=== PATIENT | male | born 1965 | race Caucasian/White ===

== ENCOUNTER 2020-04-20 22:47 | Emergency (ER) | payer BC ==
[2020-04-21] MEDS ORDERED: LORazepam 0.5 MG Tab PO ONE (00:21)
--- NOTE | 2020-04-21 00:26 | EDM.PDOC ---
ED HPI GENERAL MEDICAL PROBLEM - General Chief Complaint: Cardiovascular Problem Stated Complaint: HIGH BLOOD PRESSURE Time Seen by Provider: 04/20/20 23:30 Source of Information: Reports: Patient, Family () History Limitations: Reports: No Limitations - History of Present Illness INITIAL COMMENTS - FREE TEXT/NARRATIVE: Mr. Cordova is a very pleasant 54-year-old gentleman with no chronic medical problems, who now presents the ED stating that he developed some neck and shoulder pain after trimming some trees overhead and doing yard work this morning. He took a Tylenol around 21:30, with relief. He states, however, that he did not feel well tonight, feeling like his heart was pumping harder than normal, and he also felt anxious, unable to relax. He also found himself belching more than normal, with heartburn, since 22:00. He checked his blood pressure, finding it to be about 155/95. No associated chest pain, headache, dyspnea, nausea, vomiting, lightheadedness, blurry vision, or diaphoresis. The patient also reports 10 days of bilateral tinnitus and ear pain, although no decreased hearing. He denies an associated sore throat or rhinorrhea. Here in the ED, the patient's initial BP is found to be elevated at 172/119. He is afebrile, saturating 95% on room air. Other than the above symptoms, the patient denies recent fever, chills, sore throat, nasal or sinus congestion, cough, dyspnea, chest pain, nausea, vomiting, constipation, diarrhea, abdominal pain, urinary symptoms, recent weight gain or weight loss, recent bloody bowel movements or black bowel movements, recent joint aches, headaches, or rashes. The patient states that he has not seen a physician for the past 6 to 7 years. - Related Data Allergies Allergy/AdvReac Type Severity Reaction Status Date / Time amoxicillin AdvReac Stomach Verified 04/20/20 23:01 Upset codeine AdvReac Diarrhea Verified 04/20/20 23:01 promethazine [From Phenergan] AdvReac Diarrhea Verified 04/20/20 23:01 Home Meds: Home Meds . [No Known Home Meds] 04/20/20 [History] Past Medical History - Past Surgical History HEENT Surgical History: Reports: Adenoidectomy, Oral Surgery (wisdom teeth extraction), Tonsillectomy Social & Family History - Tobacco Use Smoking Status *Q: Never Smoker - Caffeine Use Caffeine Use: Reports: Coffee, Soda - Alcohol Use Alcohol Use History: Yes Alcohol Use Frequency: Socially - Recreational Drug Use Recreational Drug Use: No - Living Situation & Occupation Living situation: Reports: , with Spouse, with Family (2 daughters) Occupation: Employed ([employer]) ED ROS GENERAL - Review of Systems Review Of Systems: Comprehensive ROS is negative, except as noted in HPI. ED EXAM, GENERAL - Physical Exam Exam: See Below Exam Limited By: No Limitations General Appearance: Alert, WD/WN, No Apparent Distress Eye Exam: Bilateral Eye: EOMI, Normal Inspection Ears: Normal External Exam, Normal Canal, Hearing Grossly Normal, Normal TMs (no bulging, bubbles, or erythema, either side) Nose: Normal Inspection, Normal Mucosa, No Blood Throat/Mouth: Normal Inspection, Normal Lips, Normal Teeth, Normal Gums, Normal Oropharynx, Normal Voice, No Airway Compromise Head: Atraumatic, Normocephalic Neck: Normal Inspection, Supple, Non-Tender, Full Range of Motion. No: Lymphadenopathy (L), Lymphadenopathy (R) Respiratory/Chest: No Respiratory Distress, Lungs Clear, Normal Breath Sounds, No Accessory Muscle Use Cardiovascular: Normal Peripheral Pulses, Regular Rate, Rhythm, No Edema, No Gallop, No JVD, No Murmur, No Rub Peripheral Pulses: 3+: Radial (L), Radial (R) GI/Abdominal: Normal Bowel Sounds, Soft, No Organomegaly, No Distention, No Abnormal Bruit, No Mass, Other (Palpation of the abdomen makes the patient feel "gassy") (Male) Exam: Deferred Rectal (Males) Exam: Deferred Back Exam: Normal Inspection, Full Range of Motion, NT Extremities: Normal Inspection, Normal Range of Motion, No Pedal Edema, Normal Capillary Refill Neurological: Alert, Oriented, Normal Cognition, No Motor/Sensory Deficits Psychiatric: Normal Affect Skin Exam: Warm, Dry, Intact, Normal Color, No Rash EKG INTERPRETATION EKG Date: 04/20/20 Time: 23:02 Rhythm: NSR Rate (Beats/Min): 61 [place]: LAD-Left [place] Deviation P-Wave: Present QRS: RBBB ST-T: Normal QT: Normal Comparison: NA - No Prior EKG Course - Vital Signs Last Recorded V/S: Last Vital Signs Temp 36.2 C 04/20/20 22:58 Pulse 73 04/20/20 22:58 Resp 16 04/20/20 22:58 BP 172/119 H 04/20/20 22:58 Pulse Ox 95 04/20/20 22:58 - Orders/Labs/Meds Orders: Active Orders 24 hr Category Date Time Status EKG 12 Lead [EKG Documentation Completion] [RC] ROUTINE Care 04/20/20 23:04 Active Labs: Laboratory Tests 04/21/20 04/21/20 Range/Units 00:40 00:40 WBC 9.73 H (4.23-9.07) K/mm3 RBC 4.98 (4.63-6.08) M/mm3 Hgb 14.9 (13.7-17.5) gm/dl Hct 44.6 (40.1-51.0) % MCV 89.6 (79.0-92.2) fl MCH 29.9 (25.7-32.2) pg MCHC 33.4 (32.2-35.5) g/dl RDW Std Deviation 43.4 (35.1-43.9) fL Plt Count 237 (163-337) K/mm3 MPV 9.8 (9.4-12.3) fl Neut % (Auto) 74.2 H (34.0-67.9) % Lymph % (Auto) 15.6 L (21.8-53.1) % [place] % (Auto) 8.9 (5.3-12.2) % Eos % (Auto) 0.7 L (0.8-7.0) Baso % (Auto) 0.5 (0.1-1.2) % Neut # (Auto) 7.21 H (1.78-5.38) K/mm3 Lymph # (Auto) 1.52 (1.32-3.57) K/mm3 [place] # (Auto) 0.87 H (0.30-0.82) K/mm3 Eos # (Auto) 0.07 (0.04-0.54) K/mm3 Baso # (Auto) 0.05 (0.01-0.08) K/mm3 Sodium 143 (136-145) mEq/L Potassium 4.3 (3.5-5.1) mEq/L Chloride 107 (98-107) mEq/L Carbon Dioxide 31 (21-32) mEq/L Anion Gap 9.3 (5-15) BUN 15 (7-18) mg/dL Creatinine 1.2 (0.7-1.3) mg/dL Est Cr Clr Drug Dosing 76.69 mL/min Estimated GFR (MDRD) > 60 (>60) mL/min BUN/Creatinine Ratio 12.5 L (14-18) Glucose 120 H (74-106) mg/dL Calcium 9.7 (8.5-10.1) mg/dL Magnesium 2.2 (1.8-2.4) mg/dl Total Bilirubin 0.2 (0.2-1.0) mg/dL AST 33 (15-37) U/L ALT 40 (16-63) U/L Alkaline Phosphatase 72 (46-116) U/L Troponin I < 0.017 (0.00-0.056) ng/mL Total Protein 7.2 (6.4-8.2) g/dl Albumin 4.3 (3.4-5.0) g/dl Globulin 2.9 gm/dL Albumin/Globulin Ratio 1.5 (1-2) Meds: Medications Discontinued Medications Generic Name Dose Route Start Last Admin Trade Name Freq PRN Reason Stop Dose Admin Lorazepam 0.5 mg 04/21/20 00:21 04/21/20 00:25 Ativan PO 04/21/20 00:22 0.5 mg ONETIME ONE Administration - Re-Assessments/Exams Free Text/Narrative Re-Assessment/Exam: 04/21/20 00:21 As above, the patient experienced some neck and shoulder pain after trimming trees and doing yard work this morning, relieved by ibuprofen prior to coming to the ED. He also reports not feeling well, including the sensation that his heart is pumping harder than usual, and feeling anxious, unable to relax, associated with an elevated BP. He denies having chest discomfort, and the ECG obtained at triage demonstrates a right bundle branch block, but no ischemic changes. His physical exam is unremarkable. I have ordered a work-up that includes blood work, and in the meantime, the patient will be treated with 0.5 mg of oral Ativan. 04/21/20 01:24 The patient's CBC is remarkable for WBC count mildly elevated at 9.73, with the remainder of his CBC being unremarkable. His CMP is remarkable for blood glucose mildly elevated at 120, and is otherwise unremarkable. His magnesium level is within normal limits at 2.2. His troponin is undetectably low. 04/21/20 01:33 Test results discussed with the patient and his . His blood pressure is now down to 157/97, and he says that he is feeling better. I explained what hypertension is and how to properly measure it, and I explained why I am not concerned about his spurious elevation of blood pressure. Since the patient has not seen a PCP in about 6 or 7 years, I will refer him to the clinic to establish a PCP. Departure - Departure Time of Disposition: 01:34 Disposition: Home, Self-Care 01 Condition: Good Clinical Impression: Elevated blood pressure reading, RBBB (right bundle branch block) Instructions: Right Bundle Branch Block, Hypertension, Adult, [id number] Referrals: PCP,None [Primary Care Provider] - Pricila Weber NP [Nurse Practitioner] - Forms: ED Department Discharge Additional Instructions: You were seen in the emergency room for neck and shoulder pain after trimming some trees and performing yard work this morning, then for an elevated blood pressure and not feeling well this evening. Work-up in the ER included blood work and an ECG. Your entire work-up was unremarkable. You have not suffered a heart attack. Based on your history, physical exam, and ER tests, your neck and shoulder pain was most likely due to muscle strain from working overhead, and, as explained, spurious elevations of blood pressure are not meaningful. We recommend that you follow-up with Pricila Weber NP, or one of the other providers in the clinic, to establish a PCP. If any other problems, please do not hesitate to return to the ER. Sepsis Event Note (ED) - Evaluation Sepsis Screening Result: No Definite Risk - Focused Exam Vital Signs: Vital Signs Temp Pulse Resp BP Pulse Ox 04/20/20 22:58 36.2 C 73 16 172/119 H 95 - My Orders Last 24 Hours: My Active Orders 04/20/20 23:04 EKG 12 Lead [EKG Documentation Completion] [RC] ROUTINE - Assessment/Plan Last 24 Hours: My Active Orders 04/20/20 23:04 EKG 12 Lead [EKG Documentation Completion] [RC] ROUTINE
== END 2020-04-21 01:47 | disposition home or self-care (01) ==
LOC: JD.ED 22:47
DX: I45.10 Unspecified right bundle-branch block (principal); Z88.0 Allergy status to penicillin; Z88.5 Allergy status to narcotic agent; Z88.8 Allergy status to other drugs, medicaments and biological substances
CPT/HCPCS: 36415; 80053; 83735; 84484; 85025; 93005; 99283; A9270; 93010